=== PATIENT | female | born 1950 | race Caucasian/White ===

== ENCOUNTER 2017-01-21 07:05 | Day surgery (SDC) | payer MEDICARE, OTHER ==
[2017-01-18 14:33] LABS: BASOPHILS 0.5 %; BASOPHILS ABSOLUTE 0.02 10/3/uL (0.0-0.16); EOSINOPHILS 3.4 %; EOSINOPHILS ABSOLUTE 0.13 10/3/uL (0.0-0.53); HEMATOCRIT 29.5 % (36.0-48.0); HEMOGLOBIN 9.6 g/dL (12.0-16.0); LYMPHOCYTES ABSOLUTE 1.67 10/3/uL (0.67-4.30); MEAN CORPUS HGB CONC 32.5 g/dL (32.0-36.0); MEAN CORPUSCULAR HEMOGLOB 35.3 pg (26.0-34.0); MEAN CORPUSCULAR VOLUME 108.5 fL (80-100); MONOCYTES 11.1 %; MONOCYTES ABSOLUTE 0.43 10/3/uL (0.21-1.20); NEUTROPHILS ABSOLUTE 1.63 10/3/uL (2.02-8.40); PLATELET COUNT 331 10/3/uL (150-400); RBC DISTRIBUTION WIDTH 18.1 % (12.0-16.0); RED CELL COUNT 2.72 10/6/uL (4.0-5.6); WHITE BLOOD CELLS 3.9 10/3/uL (4.5-10.5)
[2017-01-18 14:34] LABS: MANUAL DIFF NO %
[2017-01-18 14:54] LABS: A/G RATIO 1.5 (0.7-1.9); ALBUMIN 3.7 G/DL (3.5-5.0); ALKALINE PHOSPHATASE 114 U/L (45-117); BUN (BLOOD UREA NITROGEN) 11 MG/DL (6-23); CALCIUM, SERUM 9.3 MG/DL (8.5-10.4); CHLORIDE, SERUM 110 MMOL/L (96-112); CO2 (CARBON DIOXIDE) 29 MMOL/L (24-34); CREATININE 1.17 MG/DL (0.55-1.02); GFR AFRICAN AMERICAN 55 ML/MIN (>=60); GFR NON AFRICAN AMERICAN 48 ML/MIN (>=60); GLOBULIN 2.5 G/DL (2.5-4.1); GLUCOSE, SERUM 107 MG/DL (60-99); POTASSIUM, SERUM 4.5 MMOL/L (3.5-5.3); SGOT(AST) 25 U/L (5-40); SGPT(ALT) 18 U/L (5-65); SODIUM, SERUM 145 MMOL/L (135-148); TOTAL BILIRUBIN 0.4 MG/DL (0-1.2); TOTAL PROTEIN 6.2 G/DL (6.0-8.5)
--- NOTE | ~2017-01-21 | OP ---
Record Of Operation [facility] [address] [place]. [address] NAME: MORALES KRUGER : 46 STATUS : [facility]#: [id number] AGE: 66 ADM/REG DATE : 01/21/17 MR#: [id number] REPORT SERV DATE: 01/24/17 DICTATED BY: BELKIS BERMUDEZ JR. DATE: 01/21/17 REPORT STATUS : Draft TRANSCRIBED BY: MODAbhilash DATE: 01/21/17 DATE OF PROCEDURE: 01/21/2017 REASON FOR SURGERY: This 66-year-old patient presents with a very large tumor occupying much of the superior portion of her right breast. She has been node negative and hormone negative, but HER2 positive. She underwent neoadjuvant chemotherapy with complete clinical response. She is now scheduled for breast preservation. Certainly in years to pass, a complete mastectomy would be necessary and this was offered to the patient, which she is desirous of attempted breast preservation. She understands that while clinically the tumors resolved, that if there is significant tumor cells spread in the specimen, then return for mastectomy will be in order at a later date. As it is, postoperative radiation therapy and completion of her Herceptin therapy will be given. PREOPERATIVE DIAGNOSIS: Carcinoma, right breast. POSTOPERATIVE DIAGNOSIS: Carcinoma, right breast. SURGERY PERFORMED: Lagrange node localization, stereotactic wire localization, right breast segmentectomy, and sentinel node resection, followed by right breast segmentectomy, and sentinel node resection. DESCRIPTION OF PROCEDURE: The patient was previously injected in the nuclear medicine facility. She was taken to the [facility] [place] and stereotactic wire localization was performed. The patient was placed in the prone position and stereotactic imaging was achieved. The patient was then prepped and anesthetized with 1% Xylocaine. The needle and wire were inserted into the breast with the tip positioned at the clip. This was well tolerated. Sterile dressing was applied. The patient was taken to the operating room and under general anesthesia, she was prepped and draped in supine position in usual sterile fashion. A very generous curvilinear incision was made over the previously placed wire. Dissection was carried into the fatty tissue and then a three-dimensional excision measuring 7 cm occupying these subcutaneous space down to the fascia was performed keeping the superficial wire and clips center most. No mass was felt. This very generous specimen was removed and oriented for pathology. The wound was irrigated and hemostasis was obtained. The wound was closed with two layers of Monocryl. Attention was then turned to the right axilla. With the gamma probe direction, a small curvilinear incision was made and vertical dissection was carried down to singly active lymph node. It was removed when counts were recorded, indicating appropriate resection of the sentinel node. No palpable adenopathy. This lymph node grossly was negative. The wound was irrigated and hemostasis was obtained. The wound was closed with two layers of Monocryl. Record Of Operation [address] [place]. [address] NAME: MORALES KRUGER : 46 STATUS : [facility]#: [id number] AGE: 66 ADM/REG DATE : 01/21/17 MR#: [id number] REPORT SERV DATE: 01/24/17 DICTATED BY: BELKIS BERMUDEZ JR. DATE: 01/21/17 REPORT STATUS : Draft TRANSCRIBED BY: RODOLFO DATE: 01/21/17 The patient tolerated the procedure well without complications. ESTIMATED BLOOD LOSS: 10 mL. SPONGE COUNT: Correct. /RODOLFO Belkis Bermudez Jr., M.D. / [id number] CC: Viky Yates Jr., D.O. F.A.C.P. Christopher Prater, M.D. J. Kirk Rogers, D.O. F.A.C.P. [facility] Viky Galloway IV, M.D.
[~2017-01-21 07:05] MED LIST: ATV.5 PO; CHEMOTHERAPY IV; CLARIT10 PO; GLUCPH PO; HYDROCHLOROT25 MG PO; LEVOTHYROXIN25 MCG PO; LEVOTHYROXINE; LOM PO; MAX25 PO; MULTIPLE VIT PO; NEULASTA SC; NORV5 PO; PEP20 PO; POTASSIUM ER PO; ZITH250 PO; [UNRECOGNIZED DRUG - OTHER]
== END 2017-01-21 16:32 | disposition home or self-care (01) ==
LOC: SDC 07:05
PROVIDERS: Surgery Surgical Oncology
PROC: 07B50ZX Excision of Right Axillary Lymphatic, Open Approach, Diagnostic (ICD-10-PCS; 2017-01-21)
PROC: 0HBT0ZX Excision of Right Breast, Open Approach, Diagnostic (ICD-10-PCS; principal; 2017-01-21 11:30)
DX: C50.911 Malignant neoplasm of unspecified site of right female breast (principal); I10 Essential (primary) hypertension; E11.9 Type 2 diabetes mellitus without complications; Z88.0 Allergy status to penicillin; Z88.2 Allergy status to sulfonamides; Z88.6 Allergy status to analgesic agent; Z88.1 Allergy status to other antibiotic agents; Z91.040 Latex allergy status; Z90.49 Acquired absence of other specified parts of digestive tract
CPT/HCPCS: 78195; 80053; 82962; 85025; 88307; 88342; 93005; A9270-GY; A9541; J0690; J2250; J2270; J2405; J2550; J3010